=== PATIENT | female | born 1975 | race Two or more races ===

== ENCOUNTER 2025-02-10 16:09 | Outpatient (CLI) | payer OTHER | END 2025-02-10 16:12 | disposition home or self-care (01) | LOC: SONOGRAMA 16:09 | PROVIDERS: ATTEND Pathology Anatomic Pathology | DX: D44.0 Neoplasm of uncertain behavior of thyroid gland (principal); D34 Benign neoplasm of thyroid gland; E04.2 Nontoxic multinodular goiter ==

== ENCOUNTER → 2025-03-17 | Outpatient (CLI) | payer OTHER | END | disposition home or self-care (01) | LOC: SONOGRAMA 15:02 | PROVIDERS: ATTEND Pathology Anatomic Pathology | DX: D44.0 Neoplasm of uncertain behavior of thyroid gland (principal); D34 Benign neoplasm of thyroid gland; E06.3 Autoimmune thyroiditis; E04.2 Nontoxic multinodular goiter ==